=== PATIENT | male | born 1975 | race Caucasian/White ===

== ENCOUNTER 2018-03-30 15:00 | Outpatient (RCR) | payer OTHER ==
[~2018-03-30 15:00] MED LIST: ALLO-119 PO
[2018-03-30 15:09] VITALS: BP 117/73
--- NOTE | 2018-03-30 22:38 | [facility] ONCOLOGY NOTE ---
EVENT DATE: March 30, 2018 DIAGNOSES 1. 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 2. History of gout. CHIEF COMPLAINT The patient is here today for followup of his hereditary hemochromatosis. HEMATOLOGY HISTORY The patient is a 42-year-old male who had blood work at the [facility], and the patient was found to have iron overload. His total iron was 238, transferrin saturation was 89%. The patient has been seen by KIRTI Burleson, his primary care, who requested genetic testing for hereditary hemochromatosis, and the test came back positive for compound heterozygous for C282Y mutation and H63D mutation. The patient was treated with phlebotomy with normalization of his iron studies. HISTORY OF PRESENT ILLNESS The patient is here today for followup of his hereditary hemochromatosis. He is doing fine currently and totally asymptomatic. Patient did not show for his regular followup for his hereditary hemochromatosis for nearly two years now, but he is here today to check his blood count and to go from there. PAST MEDICAL HISTORY 1. Acute gout. 2. Basal cell carcinoma of the skin of the back, and two moles removed also from the back. 3. Hereditary hemochromatosis with double heterozygous state for C282Y mutation and H63D mutation of the HFE gene. PAST SURGICAL HISTORY 1. Tonsillectomy and adenoidectomy as a child. 2. Resection of skin malignancies. SOCIAL HISTORY Patient is . He does not have children. He works as a [employer]. He has about six drinks per week. Denies any abuse of tobacco or drugs. FAMILY HISTORY Father had prostate cancer. Maternal grandmother had lung cancer. Maternal grandfather had lung cancer at the age of 78. MEDICATIONS Allopurinol 300 mg daily. ALLERGIES No known drug allergies. REVIEW OF SYSTEMS CONSTITUTIONAL: No appetite or weight change. No fever, chills, or sweating. No recent infection. HEENT: Ears: No tinnitus or hearing problem. Nose: No nasal discharge or epistaxis. Throat: No sore throat or mouth ulcers. Eyes: No diplopia or visual changes. RESPIRATORY: No shortness of breath. No cough, expectoration, or hemoptysis. CARDIOVASCULAR: No chest pain, orthopnea, or paroxysmal nocturnal dyspnea (PND). No edema. No palpitations. GASTROINTESTINAL: No nausea or vomiting. No diarrhea or constipation. No change in bowel movements. No heartburn or swallowing difficulties. No abdominal pain. No jaundice. No hematemesis, melena, or rectal bleeding. GENITOURINARY: No hematuria or dysuria. MUSCULOSKELETAL: No pain in the muscles, joints, or bones. NEUROLOGICAL: No tingling or numbness in the hands or feet. No headaches or convulsions. HEMATOLOGIC/LYMPHATIC: No bleeding or easy bruising. No weakness or fatigue. No enlarged lymph nodes. SKIN: No skin rash or lumps. PSYCHIATRIC: No anxiety or depression. PHYSICAL EXAMINATION GENERAL: Looks stable. Well developed, well nourished, and in no acute distress. VITAL SIGNS: Blood pressure 117/73, pulse 60 per minute, respirations 16 per minute, temperature 97.3, pulse ox 98% on room air. HEENT: Head: Atraumatic. No sinus tenderness to palpation. Eyes: No icterus or conjunctivitis. Mouth and throat: No oral thrush or mucositis. NECK: Supple. No cervical or supraclavicular lymphadenopathy. LUNGS: Clear to auscultation and percussion bilaterally. HEART: Regular rate and rhythm. No gallops, murmurs, clicks, or rubs. ABDOMEN: Soft and lax. No tenderness. No hepatosplenomegaly. No masses. EXTREMITIES: No cyanosis, clubbing, or edema. LYMPHATICS: No peripheral lymphadenopathy. NEUROLOGICAL: Conscious, alert, and oriented times three. No focal motor or sensory deficits. PSYCHIATRIC: Mood and affect appear normal. SKIN: No skin rash, bruise, or purpuric eruption. DIAGNOSTIC DATA Pending. ASSESSMENT Hereditary hemochromatosis with double heterozygous for C282Y mutation and H63D mutation of the HFE gene. Patient had phlebotomy sessions with normalization of his iron studies in the past. He did not show for nearly two years since April 2016. I am planning to proceed with his blood count today with CBC, iron studies with ferritin, and the chemistry panel. I am planning to proceed with phlebotomy if his ferritin is above 100 and/or iron saturation more than 60%. I will decide about further followup based on his iron studies today. I explained that to the patient, and he is agreeable with the plan of management. PLAN 1. Continue followup. 2. Check CBC, chem panel, and iron studies today. 3. Proceed with phlebotomy if ferritin above 100 and/or iron saturation above 60%. 4. Patient to return in the future with CBC, chem panel, and iron studies after we get the results of his iron studies today to decide about the frequency of his visits. 5. Patient to contact us for any new concern or complaints. SHAN
== END 2018-06-27 ==
LOC: ONC 15:00
PROVIDERS: ATTEND Internal Medicine Hematology
DX: E83.110 Hereditary hemochromatosis (principal)
CPT/HCPCS: 99212